=== PATIENT | female | born 1990 | race Caucasian/White ===

== ENCOUNTER 2016-11-24 13:07 | Emergency (ER) | payer BC, OTHER ==
[~2016-11-24] VITALS: Ht 172.7 cm; Wt 149.7 kg
[~2016-11-24 13:07] MED LIST: BCP; DCS100C PO; HYDR-3454 PO; MUPI1OIN5 NS; OMEP20CA12 PO; PHOS118S24 PO; PREN1TAB25 PO
[2016-11-24] MEDS ORDERED: LABE100T2 PO (13:24)
[2016-11-24] MEDS ORDERED: LISI10TA2 PO (13:24)
[2016-11-24] MEDS ORDERED: CEFP500T4 PO (13:39)
--- NOTE | 2016-11-24 13:39 | ED EENT ---
History of Present Illness General Chief Complaint: Oral/Throat Problems Stated Complaint: THROAT PAIN/L EAR PAIN Nursing Triage Note: PT CO OF SORETHROAT ON L SIDE AND L EAR PAIN Source: patient History of Present Illness Time seen by provider: 13:30 Initial Comments C/O SORE THROAT/TONSIL PAIN SINCE LAST PM AT 1800 PAIN IS WORSE ON LEFT ALSO C/O LEFT EAR PAIN NO FEVER HAS TAKEN NOTHING FOR SYMPTOMS PCP: [facility] Allergies and Home Medications Allergies Coded Allergies: Penicillins (Unverified Allergy, Severe, ANAPHYLAXIS, 08/26/14) Home Medications Cefprozil 500 Mg Tablet #20 500 MG PO BID Prescribed by: DELL BROOKE on 11/24/16 1339 Labetalol HCl 100 Mg Tablet 50 MG PO DAILY (Reported) Lisinopril 10 Mg Tablet 10 MG PO DAILY (Reported) Review of Systems Constitutional: no symptoms reported Eyes: No Symptoms Reported Ears: See HPI Nose: no symptoms reported Mouth: no symptoms reported Throat: see HPI Respiratory: no symptoms reported Cardiovascular: no symptoms reported Gastrointestinal: no symptoms reported : No (NO PERIOD IN OVER A YEAR--HAS MIRENA IUD SINCE 08/2015) Musculoskeletal: no symptoms reported Skin: no symptoms reported Neurological: No Symptoms Reported Hematologic/Lymphatic: No Symptoms Reported Immunological/Allergic: no symptoms reported Past Mzotecv-Dcyrfz-Lfojvx Hx Patient Social History Alcohol Use: Rarely Uses Recreational Drug Use: No Smoking Status: Never a Smoker Recent Foreign Travel: No Contact w/Someone Who Travel: No Recent Infectious Disease Expo: No Recent Hopitalizations: No Physical Abuse Screen: No Sexual Abuse: No Surgeries HX Surgeries: No Respiratory Hx Respiratory Disorders: No Cardiovascular Hx Cardiac Disorders: Yes (REPORTS WAS SICK A FEW MONTHS AGO, WENT TO HOSPITAL AND WAS IN A-FIB, ) Cardiac Disorders: Hypertension Neurological Hx Neurological Disorders: No (GETS LIGHTHEADED AT TIMES) Reproductive System : No (MIRENA 08/2015) 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 Genitourinary Hx Genitourinary Disorders: No Gastrointestinal Hx Gastrointestinal Disorders: Yes (N/V) Musculoskeletal Hx Musculoskeletal Disorders: No Endocrine Hx Endocrine Disorders: No HEENT HX ENT Disorders: No Cancer Hx Cancer: No Psychosocial Hx Psychiatric Problems: No Integumentary HX Skin/Integumentary Disorder: No Blood Transfusions Hx Blood Disorders: No Physical Exam Vital Signs Vital Sign - Last 12Hours 11/24/16 13:19 Temp 98.3 Pulse 108 Resp 18 B/P 146/105 Pulse Ox 98 General Appearance: WD/WN no apparent distress Eyes: bilateral eye EOMI, bilateral eye PERRL, bilateral eye normal inspection Ears: right ear TM normal, left ear TM red (WITH EFFUSION), bilateral ear auricle normal, bilateral ear canal normal Nose: normal inspection Mouth/Throat: other (PHARYNGEAL ERYTHEMA. NO EXUDATE. NO EVIDENCE OF A) Neck: non-tender full range of motion supple normal inspection Cardiovascular: regular rate, rhythm no murmur Respiratory: normal breath sounds Gastrointestinal: normal bowel sounds non tender soft no organomegaly Neurologic/Psychiatric: cell biologist II-XII nml as tested no motor/sensory deficits alert normal mood/affect oriented x 3 Skin: normal color warm/dry Progress/Results/Core Measures Results/Orders Vital Signs/I&O Blood Pressure Mean: 119 Departure Impression Impression: Primary Impression: Pharyngitis Additional Impression: Left serous otitis media Disposition: 01 HOME, SELF-CARE Condition: Stable Departure-Patient Inst. Referrals: NO,LOCAL PHYSICIAN (PCP/Family) Primary Care Physician Patient Instructions: Serous Otitis Media (DC), Sore Throat, Adult (DC) Add. Discharge Instructions: LOTS OF CLEAR LIQUIDS FREQUENT SALT WATER GARGLES TYLENOL 1 GRAM / MOTRIN 800 MG 4 TIMES A DAY FOR PAIN OR FEVER FOLLOW UP WITH [facility] IN 3-4 DAYS IF NO BETTER All discharge instructions reviewed with patient and/or family. Voiced understanding. Scripts Cefprozil 500 Mg [id number] Mg PO BID #20 TAB Prov:DELL BROOKE DO 11/24/16 DELL BROOKE DO Nov 24, 2016 13:39
[2016-11-24 14:02] VITALS: BP 138/88
== END 2016-11-24 14:01 | disposition home or self-care (01) ==
LOC: EDUNIT# 13:07 → ER 13:09
DX: J02.9 Acute pharyngitis, unspecified (principal); H65.92 Unspecified nonsuppurative otitis media, left ear
CPT/HCPCS: 99283

== ENCOUNTER 2016-12-03 20:39 | Emergency (ER) | payer BC ==
[~2016-12-03] VITALS: Ht 172.7 cm; Wt 104.3 kg
[~2016-12-03 20:39] MED LIST changes: +CEFP500T4 PO; +LABE100T2 PO; +LISI10TA2 PO
[2016-12-03] MEDS ORDERED: DICY10CA59 PO (20:52)
[2016-12-03 20:55] LABS: BILIRUBIN,URINE NEGATIVE (NEGATIVE); KETONES,URINE NEGATIVE (NEGATIVE); LEUKOCYTE ESTERASE ,URINE 1+ (NEGATIVE); NITRITE,URINE NEGATIVE (NEGATIVE); PH,URINE 7 (5-9); PROTEIN,URINE NEGATIVE (NEGATIVE); UROBILINOGEN,URINE NORMAL (NORMAL)
[2016-12-03] MEDS ORDERED: NS IV 1000 ML 1,000 ML IV ONE (20:58)
[2016-12-03] MEDS ORDERED: ONDANSETRON 4 MG/2 ML (SDV) Z0FRAN IVP ONE (21:00)
[2016-12-03] MEDS ORDERED: fentaNYL INJECTION 100 MCG/2 ML AMP IVP ONE (21:00)
[2016-12-03 21:10] LABS: BASOPHILS % (AUTO) 0 % (0-10); EOSINOPHILS # (AUTO) 0.2 10^3/uL (0.0-0.3); EOSINOPHILS % (AUTO) 2 % (0-10); LYMPHOCYTES # (AUTO) 3.2 X 10^3 (1.0-4.0); LYMPHOCYTES % (AUTO) 34 % (12-44); MEAN CORPUSCULAR HEMOGLOBIN 31 PG (25-34); MEAN CORPUSCULAR HGB CONC 35 G/DL (32-36); MEAN CORPUSCULAR VOLUME 88 FL (80-99); MEAN PLATELET VOLUME 9.8 FL (7.4-10.4); MONOCYTES # (AUTO) 0.6 X 10^3 (0.0-1.0); MONOCYTES % (AUTO) 7 % (0-12); NEUTROPHILS # (AUTO) 5.3 X 10^3 (1.8-7.8); NEUTROPHILS % (AUTO) 57 % (42-75); PLATELET COUNT 318 10^3/uL (130-400); RED BLOOD COUNT 4.76 10^6/uL (4.35-5.85); RED CELL DISTRIBUTION WIDTH 12.7 % (10.0-14.5); WHITE BLOOD COUNT 9.3 10^3/uL (4.3-11.0)
--- NOTE | 2016-12-03 21:15 | ED Abdominal Pain ---
General Chief Complaint: Abdominal/GI Problems Stated Complaint: RT SIDE LOWER ABD PAIN Nursing Triage Note: pt c/o rlq abd pain et diarrhea starting yesterday. mirena in place. Sepsis Screen: Possible Sepsis Risk Source of Information: Patient Exam Limitations: No Limitations History of Present Illness Time Seen By Provider: 20:45 Initial Comments This 25-year-old woman presents to the emergency room with complaints of right lower quadrant pain since yesterday. Associated symptoms include nausea, vomiting, and diarrhea. She has chills without fever. She is tearful, hypertensive, and tachycardic. She has a Mirena IUD. She notes darker urine with decreased urine output. No vaginal symptoms. Pain is reported as 8/10. She took Tylenol at home without benefit. Patient is very anxious. Allergies and Home Medications Allergies Coded Allergies: Penicillins (Unverified Allergy, Severe, ANAPHYLAXIS, 08/26/14) Home Medications Dicyclomine HCl 10 Mg Capsule 10 MG PO TID (Reported) Labetalol HCl 100 Mg Tablet 50 MG PO BID (Reported) Lisinopril 10 Mg Tablet 10 MG PO DAILY (Reported) Review of Systems Constitutional: see HPI EENTM: No Symptoms Reported Respiratory: No Symptoms Reported Cardiovascular: No Symptoms Reported Gastrointestinal: See HPI Genitourinary: See HPI Musculoskeletal: no symptoms reported Skin: no symptoms reported Psychiatric/Neurological: Anxiety Endocrine: No Symptoms Reported Hematologic/Lymphatic: No Symptoms Reported Past Eyetiaj-Bkuvbv-Veimga Hx Patient Social History Alcohol Use: Rarely Uses Recreational Drug Use: No Smoking Status: Never a Smoker Recent Foreign Travel: No Contact w/Someone Who Travel: No Recent Infectious Disease Expo: No Recent Hopitalizations: No Physical Abuse Screen: No Sexual Abuse: No Surgeries HX Surgeries: Yes (wisdom teeth) Surgeries: Section, Gallbladder Respiratory Hx Respiratory Disorders: No Cardiovascular Hx Cardiac Disorders: Yes (Tachyarrhythmia) Cardiac Disorders: Hypertension Neurological Hx Neurological Disorders: No (GETS LIGHTHEADED AT TIMES) 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 Genitourinary Hx Genitourinary Disorders: No Gastrointestinal Hx Gastrointestinal Disorders: Yes (N/V) Gastrointestinal Disorders: Irritable Bowel Musculoskeletal Hx Musculoskeletal Disorders: No Endocrine Hx Endocrine Disorders: Yes (Morbid obesity) HEENT HX ENT Disorders: No Cancer Hx Cancer: No Psychosocial Hx Psychiatric Problems: No Integumentary HX Skin/Integumentary Disorder: No Blood Transfusions Hx Blood Disorders: No Family Medical History Significant Family History: Diabetes, Other Conditions/Hx (Arthritis) Physical Exam Vital Signs VS - Last 72 Hours, by Label 12/03/16 12/03/16 20:47 23:00 Temp 98.9 Pulse 118 95 Resp 18 16 B/P 181/113 Pulse Ox 100 O2 Delivery Room Air Capillary Refill : Less Than 3 Seconds General Appearance: WD/WN moderate distress obese HEENT: PERRL/EOMI normal ENT inspection Neck: normal inspection Respiratory: lungs clear normal breath sounds no respiratory distress no accessory muscle use Cardiovascular: no edema no murmur tachycardia Gastrointestinal: normal bowel sounds soft tenderness (RLQ) other (Positive right psoas sign.) Extremities: normal inspection no pedal edema Back: normal inspection CVA tenderness (R) 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 no motor/sensory deficits alert normal mood/affect oriented x 3 Skin: normal color warm/dry Progress/Results/Core Measures Results/Orders Lab Results Laboratory Tests Test 12/03/16 20:42 12/03/16 20:53 Range/Units Urine Bacteria FEW H /HPF Urine Bilirubin NEGATIVE NEGATIVE Urine Casts NONE /LPF Urine Clarity SLIGHTLY CLOUDY Urine Color YELLOW Urine Crystals NONE /LPF Urine Culture Indicated NO Urine Glucose (UA) NEGATIVE NEGATIVE Urine Ketones NEGATIVE NEGATIVE Urine Leukocyte Esterase 1+ H NEGATIVE Urine Mucus NEGATIVE /LPF Urine Nitrite NEGATIVE NEGATIVE Urine Protein NEGATIVE NEGATIVE Urine RBC NONE /HPF Urine RBC (Auto) NEGATIVE NEGATIVE Urine Specific [place] 1.010 L 1.016-1.022 Urine Squamous Epithelial Cells 10-25 H /HPF Urine Urobilinogen NORMAL NORMAL MG/DL Urine WBC 2-5 /HPF Urine pH 7 5-9 Alanine Aminotransferase (ALT/SGPT) 87 H 0-55 U/L Albumin 4.7 H 3.2-4.5 G/DL Alkaline Phosphatase 106 40-136 U/L Anion Gap 11 5-14 MMOL/L Aspartate Amino Transf (AST/SGOT) 50 H 5-34 U/L BUN/Creatinine Ratio 11 Basophils # (Auto) 0.0 0.0-0.1 10^3/uL Basophils (%) (Auto) 0 0-10 % Blood Urea Nitrogen 8 7-18 MG/DL Calcium Level 9.5 8.5-10.1 MG/DL Carbon Dioxide Level 22 21-32 MMOL/L Chloride Level 110 H 98-107 MMOL/L Creatinine 0.71 0.60-1.30 MG/DL Eosinophils # (Auto) 0.2 0.0-0.3 10^3/uL Eosinophils (%) (Auto) 2 0-10 % Estimat Glomerular Filtration Rate > 60 Glucose Level 79 70-105 MG/DL Hematocrit 42 35-52 % Hemoglobin 14.5 11.5-16.0 G/DL Lymphocytes # (Auto) 3.2 1.0-4.0 X 10^3 Lymphocytes (%) (Auto) 34 12-44 % Mean Corpuscular Hemoglobin 31 25-34 PG Mean Corpuscular Hemoglobin Concent 35 32-36 G/DL Mean Corpuscular Volume 88 80-99 FL Mean Platelet Volume 9.8 7.4-10.4 FL Monocytes # (Auto) 0.6 0.0-1.0 X 10^3 Monocytes (%) (Auto) 7 0-12 % Neutrophils # (Auto) 5.3 1.8-7.8 X 10^3 Neutrophils (%) (Auto) 57 42-75 % Platelet Count 318 130-400 10^3/uL Potassium Level 4.2 3.6-5.0 MMOL/L Red Blood Count 4.76 4.35-5.85 10^6/uL Red Cell Distribution Width 12.7 10.0-14.5 % Serum Test, Qualitative NEGATIVE NEGATIVE Sodium Level 143 135-145 MMOL/L Total Bilirubin 0.3 0.1-1.0 MG/DL Total Protein 8.3 H 6.4-8.2 G/DL White Blood Count 9.3 4.3-11.0 10^3/uL My Orders Orders-ANKUR GALE MD Cbc With Automated Diff (12/03/16 20:45) Comprehensive Metabolic Panel (12/03/16 20:45) Hcg,Qualitative Serum (12/03/16 20:45) Ua Culture If Indicated (12/03/16 20:45) Saline Lock/Iv-Start (12/03/16 20:45) Ondansetron Injection (Zofran Injectio (12/03/16 21:00) Fentanyl Injection (Sublimaze Injection (12/03/16 21:00) Ns Iv 1000 Ml (Sodium Chloride 0.9%) (12/03/16 20:58) Ct Abd/Pelv W (Appendicitis) (12/03/16 21:29) Iohexol Injection (Omnipaque 350 Mg/Ml 1 (12/03/16 21:30) Ns (Ivpb) (Sodium Chloride 0.9% Ivpb Bag (12/03/16 21:30) Ketorolac Injection (Toradol Injection) (12/03/16 22:30) Rx-Hyoscyamine Tab (Rx-Levsin Sl) (12/03/16 22:45) Rx-Ondansetron Po (Rx-Zofran Po) (12/03/16 22:45) Medications Given in ED Vital Signs/I&O Vital Sign - Last 12Hours 12/03/16 12/03/16 20:47 23:00 Temp 98.9 Pulse 118 95 Resp 18 16 B/P 181/113 Pulse Ox 100 O2 Delivery Room Air Blood Pressure Mean: 135 Progress Note #1: Time: 21:27 Progress Note Pain and nausea improved with fentanyl and Zofran. Heart rate and blood pressure improved with treatment of pain. IV fluids are infusing. Workup is relatively unremarkable up to this point. CT to rule out appendicitis will be ordered. Progress Note #2: Progress Note CT revealed no evidence of appendicitis. Mesenteric adenitis was identified and is likely the cause of her pain. Toradol was added to her treatment regimen. Diagnostic Imaging Diagonstic Imaging: CT Plain Films/CT/US/NM/MRI: abdomen, pelvis Comments CT abdomen and pelvis viewed by me and report reviewed. See report below: NAME: HIRO MAYORGA [facility] REC#: [id number] PT STATUS: REG ER : 1990 PHYSICIAN: ANKUR GALE MD ADMIT DATE: 12/03/16/ER Signed Date of Exam: 12/03/16 CT ABD/PELV W (APPENDICITIS) PROCEDURE: CT abdomen and pelvis with contrast, rule out appendicitis. TECHNIQUE: Multiple contiguous axial images were obtained through the abdomen and pelvis after the administration of intravenous contrast. INDICATION: Right lower quadrant pain There are no previous studies available for comparison. The appendix was visualized and the appendix is not abnormally thickened. There is no distortion of the periappendiceal fat to suggest acute appendicitis either. There is no solid pelvic mass or free fluid collection noted. There is an IUD within the uterus. The IUD seems to be in good position. Also, there is a 2.7 x 3.5 CM oval area of low density in the left adnexa. I suspect that this is a cyst arising from the left ovary. If further study is desired, then ultrasound would be recommended. The urinary bladder is grossly unremarkable. There is slight distortion of the mesenteric fat near the root of the mesentery and there are a few nodes in this area. This appearance does raise the question of mesenteric adenitis. The liver does not appear to be enlarged. The gallbladder is surgically absent. The spleen, kidneys, pancreas, adrenals, aorta and inferior vena cava show no sign of an acute abnormality. There is some particulate matter within the stomach. The stomach is otherwise unremarkable. The lung bases are clear. The bone windows show no sign of a fracture or of a destructive lesion. IMPRESSION: 1. There is no evidence for appendicitis. However, the slight distortion of the mesentery near the root of the mesentery and the small lymph nodes in this area do raise the question of mesenteric adenitis. 2. There may be a small cyst associated with the left ovary. If further study is desired, then ultrasound would be recommended. 3. There is no acute abnormality of the abdomen or pelvis noted otherwise. 4. There is an IUD and the IUD seems to be in good position. Dictated by: Dictated on workstation # [id number] Dict: 12/03/16 2159 Trans: 12/03/162239 NIKITA [id number] Interpreted by: ARSH TOMAS MD Electronically signed by:ARSH TOMAS MD 12/03/162 Departure Impression Impression: Primary Impression: Suspicious nevus Additional Impressions: Mesenteric lymphadenitis Right lower quadrant pain Nausea vomiting and diarrhea Disposition: HOME, SELF-CARE Condition: Improved Departure-Patient Inst. Decision time for Depature: 22:40 [facility] Primary Care Physician Patient Instructions: Acute Abdomen (Belly Pain), Adult (DC) Add. Discharge Instructions: Clear liquid diet until symptoms improve. Dissolve Zofran (ondansetron) under the tongue every 4 hours as needed for nausea and vomiting. Dissolve Levsin (hyoscyamine) under the tongue every 4 hours as needed for cramping and diarrhea. You may take ibuprofen up to 600 mg every 6 hours as needed for pain. Add Tylenol up to 1000 mg every 6 hours as needed for additional pain relief. Return to the emergency room if symptoms worsen. Follow-up with your primary care provider within the next week. Have your suspicious appearing moles evaluated by your primary care provider. All discharge instructions reviewed with patient and/or family. Voiced understanding. ANKUR GALE MD Dec 03, 2016 21:15
[2016-12-03 21:24] LABS: ALANINE AMINOTRANSFERASE 87 U/L (0-55); ALBUMIN 4.7 G/DL (3.2-4.5); ANION GAP 11 MMOL/L (5-14); ASPARTATE AMINO TRANSFERASE 50 U/L (5-34); BILIRUBIN,TOTAL 0.3 MG/DL (0.1-1.0); BLOOD UREA NITROGEN 8 MG/DL (7-18); BUN/CREATININE RATIO 11; CALCIUM 9.5 MG/DL (8.5-10.1); CARBON DIOXIDE 22 MMOL/L (21-32); CHLORIDE 110 MMOL/L (98-107); CREATININE SERUM 0.71 MG/DL (0.60-1.30); GFR ESTIMATED > 60; GLUCOSE 79 MG/DL (70-105); POTASSIUM 4.2 MMOL/L (3.6-5.0); SODIUM 143 MMOL/L (135-145); TOTAL PROTEIN 8.3 G/DL (6.4-8.2)
[2016-12-03] MEDS ORDERED: IOHEXOL 350 MG/ML 100 ML (OMNIPAQUE 350) VIAL IV ONE (21:30)
[2016-12-03] MEDS ORDERED: NS 100 ML (IVPB) BAG IV ONE (21:30)
--- NOTE | 2016-12-03 22:12 | Diagnostic Imaging Report ---
PROCEDURE: CT abdomen and pelvis with contrast, rule out appendicitis. TECHNIQUE: Multiple contiguous axial images were obtained through the abdomen and pelvis after the administration of intravenous contrast. INDICATION: Right lower quadrant pain There are no previous studies available for comparison. The appendix was visualized and the appendix is not abnormally thickened. There is no distortion of the periappendiceal fat to suggest acute appendicitis either. There is no solid pelvic mass or free fluid collection noted. There is an IUD within the uterus. The IUD seems to be in good position. Also, there is a 2.7 x 3.5 CM oval area of low density in the left adnexa. I suspect that this is a cyst arising from the left ovary. If further study is desired, then ultrasound would be recommended. The urinary bladder is grossly unremarkable. There is slight distortion of the mesenteric fat near the root of the mesentery and there are a few nodes in this area. This appearance does raise the question of mesenteric adenitis. The liver does not appear to be enlarged. The gallbladder is surgically absent. The spleen, kidneys, pancreas, adrenals, aorta and inferior vena cava show no sign of an acute abnormality. There is some particulate matter within the stomach. The stomach is otherwise unremarkable. The lung bases are clear. The bone windows show no sign of a fracture or of a destructive lesion. IMPRESSION: 1. There is no evidence for appendicitis. However, the slight distortion of the mesentery near the root of the mesentery and the small lymph nodes in this area do raise the question of mesenteric adenitis. 2. There may be a small cyst associated with the left ovary. If further study is desired, then ultrasound would be recommended. 3. There is no acute abnormality of the abdomen or pelvis noted otherwise. 4. There is an IUD and the IUD seems to be in good position. Dictated by: Dictated on workstation # [id number]
[2016-12-03] MEDS ORDERED: KETOROLAC 30 MG/ML VIAL IVP ONE (22:30)
[2016-12-03] MEDS ORDERED: RX-ONDANSETRON 4 MG ODT (ZOFRAN) PPK #4 SL STA (22:45)
[2016-12-03] MEDS ORDERED: RX-HYOSCYAMINE 0.125 MG SL (LEVSIN) PPK#6 SL STA (22:45)
[2016-12-03 23:00] VITALS: BP 133/77
== END 2016-12-03 23:05 | disposition home or self-care (01) ==
LOC: EDUNIT# 20:39 → ER 20:41
DX: I88.0 Nonspecific mesenteric lymphadenitis (principal); R11.2 Nausea with vomiting, unspecified; R19.7 Diarrhea, unspecified; I10 Essential (primary) hypertension; E66.01 Morbid (severe) obesity due to excess calories; D22.9 Melanocytic nevi, unspecified; Z97.5 Presence of (intrauterine) contraceptive device
CPT/HCPCS: 36415; 74177; 80053; 81000; 84703; 85025; 96361; 96374; 96375

== ENCOUNTER 2018-06-02 11:49 | Emergency (ER) | payer BC ==
[~2018-06-02] VITALS: Ht 172.7 cm; Wt 104.3 kg
[2018-06-02] MEDS ORDERED: IBUPROFEN 800 MG (MOTRIN) TAB PO ONE (12:15)
--- NOTE | 2018-06-02 12:19 | ED Cardiac General ---
History of Present Illness General Chief Complaint: Cardiac/General Problems Stated Complaint: HIGH BP Source: patient, other Exam Limitations: no limitations History of Present Illness Date Seen by Provider: Jun 02, 2018 Time Seen by Provider: 12:05 Initial Comments Patient is a 27-year-old female who was sent over to the emergency room for hypertension and a headache from the [facility]. She was being evaluated at the [facility] [place] for ongoing chest pain since March of this year and today they had a echocardiogram and a treadmill stress test ordered. They were able to complete the echocardiogram but when they were doing the initial vital signs for the stress test they had 3 readings that were all over 200 systolic in 100 diastolic. They say they weren't unable to perform the stress test with these vital signs the engagement quality consultant wanted her evaluated in the emergency room. She is currently on her period and is having some cramping with this also. Denies chest pain, shortness of breath, and dizziness at this time. She reports taking lisinopril and labetalol for hypertension but was told to hold these medications today for her stress test. Timing/Duration: 1/2 hour Activities at Onset: none Associated Systoms: No Chest Pain; Headaches Allergies and Home Medications Allergies Coded Allergies: Penicillins (Unverified Allergy, Severe, ANAPHYLAXIS, 08/26/14) Home Medications Dicyclomine HCl 10 Mg Capsule, 10 MG PO TID, (Reported) Labetalol HCl 100 Mg Tablet, 50 MG PO BID, (Reported) Lisinopril 10 Mg Tablet, 10 MG PO DAILY, (Reported) Patient Home Medication List Home Medication List Reviewed: Yes Review of Systems Constitutional: see HPI; No chills, No diaphoresis EENTM: See HPI; No Blurred Vision, No Double Vision, No Eye Pain Respiratory: See HPI; Denies Shortness of Air, Denies SOA at Rest, Denies Wheezing Cardiovascular: See HPI; Denies Irregular Heart Rate, Denies Lightheadedness, Denies Palpitations, Denies Syncope Gastrointestinal: See HPI; Denies Abdomen Distended, Denies Abdominal Pain, Denies Blood Streaked Stools Genitourinary: See HPI, Other (patient is currently on her menstrual cycle and reports that she is spotting.) Musculoskeletal: see HPI; No back pain, No gout, No joint pain Skin: see HPI; No change in color, No change in hair/nails Psychiatric/Neurological: See HPI; Denies Depressed, Denies Emotional Problems ; Headache Endocrine: See HPI; Denies Excessive Sweating, Denies Flushing Hematologic/Lymphatic: See HPI; Denies Anemia All Other Systems Reviewed Negative Unless Noted: Yes Past Kkqzvmb-Defbni-Iupqae Hx Past Med/Social Hx: Reviewed Nursing Past Med/Soc Hx Patient Social History Recent Foreign Travel: No Contact w/Someone Who Travel: No Recent Hopitalizations: No Past Medical History Section, Gallbladder Hypertension OPERATING ROOM COORDINATOR History: IUD Irritable Bowel Family Medical History Reviewed Nursing Family Hx Diabetes, Other Conditions/Hx Physical Exam Vital Signs Vital Signs - First Documented 06/02/18 11:53 Temp 97.4 Pulse 97 Resp 18 B/P (MAP) 135/78 (97) Pulse Ox 99 O2 Delivery Room Air Capillary Refill : Height, Weight, BMI Height: 5', 8" Weight: 230lbs oz, 104.211885lq Method:Stated ,BMI General Appearance: No Apparent Distress, WD/WN HEENT: PERRL/EOMI, TMs Normal, Normal ENT Inspection, Pharynx Normal, Moist Mucous Membranes Neck: Full Range of Motion, Normal Inspection, Non Tender, Supple Respiratory: Chest Non Tender, Lungs Clear, Normal Breath Sounds, No Accessory Muscle Use, No Respiratory Distress Cardiovascular: Regular Rate, Rhythm, No Edema, No Gallop, No JVD, No Murmur, Normal Peripheral Pulses Gastrointestinal: Normal Bowel Sounds, No Organomegaly, No Pulsatile Mass, Non Tender, Soft Extremity: Normal Capillary Refill, Normal Inspection, Normal Range of Motion, Non Tender, No Calf Tenderness Neurologic/Psychiatric: Alert, Oriented x3, Normal Mood/Affect Skin: Normal Color, Warm/Dry Lymphatic: No Adenopathy Progress/Results/Core Measures Results/Orders Lab Results Laboratory Tests Test 06/02/18 12:00 06/02/18 12:14 Range/Units Urine Color RED H Urine Clarity BLOODY H Urine pH 6.5 5-9 Urine Specific [place] 1.010 L 1.016-1.022 Urine Protein 3+ H NEGATIVE Urine Glucose (UA) NEGATIVE NEGATIVE Urine Ketones NEGATIVE NEGATIVE Urine Nitrite NEGATIVE NEGATIVE Urine Bilirubin NEGATIVE NEGATIVE Urine Urobilinogen NORMAL NORMAL MG/DL Urine Leukocyte Esterase 3+ H NEGATIVE Urine RBC (Auto) 5+ H NEGATIVE Urine RBC TNTC H /HPF Urine WBC 2-5 /HPF Urine Squamous Epithelial Cells 2-5 /HPF Urine Crystals NONE /LPF Urine Bacteria TRACE /HPF Urine Casts NONE /LPF Urine Mucus NEGATIVE /LPF Urine Culture Indicated NO White Blood Count 6.9 4.3-11.0 10^3/uL Red Blood Count 4.12 L 4.35-5.85 10^6/uL Hemoglobin 12.6 11.5-16.0 G/DL Hematocrit 36 35-52 % Mean Corpuscular Volume 86 80-99 FL Mean Corpuscular Hemoglobin 31 25-34 PG Mean Corpuscular Hemoglobin Concent 36 32-36 G/DL Red Cell Distribution Width 12.7 10.0-14.5 % Platelet Count 293 130-400 10^3/uL Mean Platelet Volume 9.7 7.4-10.4 FL Neutrophils (%) (Auto) 63 42-75 % Lymphocytes (%) (Auto) 30 12-44 % Monocytes (%) (Auto) 6 0-12 % Eosinophils (%) (Auto) 1 0-10 % Basophils (%) (Auto) 0 0-10 % Neutrophils # (Auto) 4.3 1.8-7.8 X 10^3 Lymphocytes # (Auto) 2.1 1.0-4.0 X 10^3 Monocytes # (Auto) 0.4 0.0-1.0 X 10^3 Eosinophils # (Auto) 0.1 0.0-0.3 10^3/uL Basophils # (Auto) 0.0 0.0-0.1 10^3/uL Sodium Level 141 135-145 MMOL/L Potassium Level 4.0 3.6-5.0 MMOL/L Chloride Level 111 H 98-107 MMOL/L Carbon Dioxide Level 22 21-32 MMOL/L Anion Gap 8 5-14 MMOL/L Blood Urea Nitrogen 8 7-18 MG/DL Creatinine 0.71 0.60-1.30 MG/DL Estimat Glomerular Filtration Rate > 60 BUN/Creatinine Ratio 11 Glucose Level 96 70-105 MG/DL Calcium Level 9.3 8.5-10.1 MG/DL Magnesium Level 2.1 1.8-2.4 MG/DL Total Bilirubin 0.4 0.1-1.0 MG/DL Aspartate Amino Transf (AST/SGOT) 18 5-34 U/L Alanine Aminotransferase (ALT/SGPT) 45 0-55 U/L Alkaline Phosphatase 83 40-136 U/L Myoglobin 19.8 10.0-92.0 NG/ML Troponin I < 0.30 <0.30 NG/ML Total Protein 7.3 6.4-8.2 GM/DL Albumin 4.2 3.2-4.5 GM/DL My Orders Orders - TERE DOW Cbc With Automated Diff (06/02/18 12:02) Magnesium (06/02/18 12:02) Chest 1 View, Ap/Pa Only (06/02/18 12:02) Ekg Tracing (06/02/18 12:02) Cardiac Profile 1 (06/02/18 12:02) Comprehensive Metabolic Panel (06/02/18 12:02) Myoglobin Serum (06/02/18 12:02) Saline Lock/Iv-Start (06/02/18 12:02) Ibuprofen Tablet (Motrin Tablet) (06/02/18 12:15) Ondansetron Oral Dissolve Tab (Zofran (06/02/18 13:15) Ua Culture If Indicated (06/02/18 13:33) Medications Given in ED Vital Signs/I&O 06/02/18 06/02/18 11:53 14:20 Temp 97.4 98.1 Pulse 97 66 Resp 18 16 B/P (MAP) 135/78 (97) 157/84 Pulse Ox 99 99 O2 Delivery Room Air Room Air Progress Progress Note : Time: 13:14 Progress Note Patient reports developing nausea and feels like she could vomit at any time. 8 mg of Zofran ODT was ordered. Patient reports that she had some nausea this morning and took her own Zofran 4 mg that seemed to work but the symptoms have returned now. 1355: I called via [facility] and they stated that the engagement quality consultant would not do her stress test today and that she needs to follow up with [facility] for an additional order. 1409: Patient's headache and nausea is gone at this time. Her blood pressure remains normotensive. She is advised to go home and continue her home medications. She agrees with plans of discharge and follow-up with Edna Santana at [facility]. Comment Sinus arrhythmia. Dr. Lindsey also review the EKG. EKG : EKG Time: 11:59 Rate: 73 Rhythm: sinus dysrhythmia Intervals: Normal ECG Comparisson: No Previous ECG Available Comment EKG was reviewed by myself and Dr. Lindsey. Diagnostic Imaging Diagonstic Imaging: Xray Plain Films/CT/US/NM/MRI: chest Comments VIA [facility], [facility]. [place], [place] NAME: HIRO [facility]ORGA [facility] REC#: [id number] PT STATUS: REG ER : 1990 PHYSICIAN: TERE DOW ADMIT DATE: 06/02/18/ER Draft Date of Exam:06/02/18 CHEST 1 VIEW, AP/PA ONLY INDICATION: Hypertension. EXAMINATION: Portable upright AP view of the chest is obtained. COMPARISON: There is no previous study for comparison. FINDINGS: Heart size is within normal limits. Pulmonary vasculature is at the upper limits of normal, however there is no evidence of overt edema. No pneumothorax or consolidation is seen. IMPRESSION: There may be borderline pulmonary venous congestion with otherwise unremarkable chest. Dictated on workstation # [id number] Dict: 06/02/18 1253 Trans: 06/02/18 1302 [facility] [id number] Interpreted by: LING NORMAN MD Electronically signed by: Departure Impression Primary Impression: Headache Additional Impression: Nausea Disposition: 01 HOME, SELF-CARE Condition: Stable/Unchanged Departure-Patient Inst. [facility] Primary Care Physician Patient Instructions: HEADACHE, Nausea and Vomiting, Adult Add. Discharge Instructions: Continue your home medications. Be sure and take your blood pressure medication today as directed. You may use Zofran that you have at home as needed for nausea and vomiting. Follow-up with [facility] within 1 week for recheck call today for an appointment time. Return back to the emergency room for any increased chest pain, shortness of breath, nausea, vomiting or any other concerns as needed. All discharge instructions reviewed with patient and/or family. Voiced understanding. TERE DOW Jun 02, 2018 12:19
[2018-06-02 12:24] LABS: BASOPHILS % (AUTO) 0 % (0-10); EOSINOPHILS # (AUTO) 0.1 10^3/uL (0.0-0.3); EOSINOPHILS % (AUTO) 1 % (0-10); HEMATOCRIT 36 % (35-52); HEMOGLOBIN 12.6 G/DL (11.5-16.0); LYMPHOCYTES # (AUTO) 2.1 X 10^3 (1.0-4.0); LYMPHOCYTES % (AUTO) 30 % (12-44); MEAN CORPUSCULAR HEMOGLOBIN 31 PG (25-34); MEAN CORPUSCULAR HGB CONC 36 G/DL (32-36); MEAN CORPUSCULAR VOLUME 86 FL (80-99); MEAN PLATELET VOLUME 9.7 FL (7.4-10.4); MONOCYTES # (AUTO) 0.4 X 10^3 (0.0-1.0); MONOCYTES % (AUTO) 6 % (0-12); NEUTROPHILS # (AUTO) 4.3 X 10^3 (1.8-7.8); NEUTROPHILS % (AUTO) 63 % (42-75); PLATELET COUNT 293 10^3/uL (130-400); RED BLOOD COUNT 4.12 10^6/uL (4.35-5.85); RED CELL DISTRIBUTION WIDTH 12.7 % (10.0-14.5); WHITE BLOOD COUNT 6.9 10^3/uL (4.3-11.0)
[2018-06-02 12:48] LABS: ALANINE AMINOTRANSFERASE 45 U/L (0-55); ALBUMIN 4.2 GM/DL (3.2-4.5); ALKALINE PHOSPHATASE 83 U/L (40-136); BILIRUBIN,TOTAL 0.4 MG/DL (0.1-1.0); BUN/CREATININE RATIO 11; CALCIUM 9.3 MG/DL (8.5-10.1); CARBON DIOXIDE 22 MMOL/L (21-32); CHLORIDE 111 MMOL/L (98-107); CREATININE SERUM 0.71 MG/DL (0.60-1.30); GFR ESTIMATED > 60; GLUCOSE 96 MG/DL (70-105); MAGNESIUM 2.1 MG/DL (1.8-2.4); SODIUM 141 MMOL/L (135-145); TOTAL PROTEIN 7.3 GM/DL (6.4-8.2)
[2018-06-02 12:54] LABS: MYOGLOBIN SERUM 19.8 NG/ML (10.0-92.0)
--- NOTE | 2018-06-02 13:03 | Diagnostic Imaging Report ---
INDICATION: Hypertension. EXAMINATION: Portable upright AP view of the chest is obtained. COMPARISON: There is no previous study for comparison. FINDINGS: Heart size is within normal limits. Pulmonary vasculature is at the upper limits of normal, however there is no evidence of overt edema. No pneumothorax or consolidation is seen. IMPRESSION: There may be borderline pulmonary venous congestion with otherwise unremarkable chest. Dictated by: Dictated on workstation # [id number]
[2018-06-02] MEDS ORDERED: ONDANSETRON 4 MG (ZOFRAN) ORAL DISSOLVE TAB PO ONE (13:15)
[2018-06-02 13:45] LABS: BILIRUBIN,URINE NEGATIVE (NEGATIVE); CLARITY,URINE BLOODY; COLOR,URINE RED; GLUCOSE, URINE (UA) NEGATIVE (NEGATIVE); KETONES,URINE NEGATIVE (NEGATIVE); LEUKOCYTE ESTERASE ,URINE 3+ (NEGATIVE); NITRITE,URINE NEGATIVE (NEGATIVE); PH,URINE 6.5 (5-9); PROTEIN,URINE 3+ (NEGATIVE); UROBILINOGEN,URINE NORMAL (NORMAL)
[2018-06-02 13:55] LABS: BACTERIA,URINE TRACE /HPF; RBC,URINE TNTC /HPF
[2018-06-02 14:20] VITALS: BP 157/84
== END 2018-06-02 14:20 | disposition home or self-care (01) ==
LOC: EDUNIT# 11:49 → ER 11:50
DX: R51 Headache (principal); R11.0 Nausea; I10 Essential (primary) hypertension; Z88.0 Allergy status to penicillin; Z87.59 Personal history of other complications of pregnancy, childbirth and the puerperium
CPT/HCPCS: 36415; 71045; 80053; 81000; 83735; 83874; 84484; 85025; 93005

== ENCOUNTER → 2018-06-02 | Outpatient (CLI) | payer BC ==
[~2018-06-02] MED LIST changes: +DICY10CA59 PO; -LABE100T2 PO; +LABE100T6 PO
== END ==
LOC: CARD 09:59
PROVIDERS: ATTEND Nurse Practitioner Family
DX: R07.9 Chest pain, unspecified (principal); I10 Essential (primary) hypertension
CPT/HCPCS: 93306

== ENCOUNTER → 2018-06-09 | Outpatient (CLI) | payer BC ==
[~2018-06-09] MED LIST changes: +ONDANSETRON 4 MG/2 ML (SDV) Z0FRAN IVP ONE; +ONDANSETRON 4 MG/2 ML (SDV) Z0FRAN ONE
[2018-06-09 12:05] VITALS: BP 202/98
== END ==
LOC: CARD 10:16
PROVIDERS: ATTEND Nurse Practitioner Family
DX: I10 Essential (primary) hypertension (principal); R07.9 Chest pain, unspecified